=== PATIENT | female | born 1970 | race Caucasian/White ===

== ENCOUNTER 2024-12-13 21:19 | Inpatient (IN) | payer OTHER ==
[~2024-12-13] VITALS: Ht 162.5 cm; Wt 94.3 kg
[~2024-12-13 21:19] MED LIST: DAYPRO600 M1 PO
[2024-12-13 21:34] VITALS: BP 154/82
[2024-12-13] MEDS ORDERED: AMITRIPTYLINE150 M1 PO (21:39)
[2024-12-13] MEDS ORDERED: NEURONTIN100 MG PO (21:39)
[2024-12-13] MEDS ORDERED: FLUOXETINE HCL40 MG PO (21:40)
[2024-12-13] MEDS ORDERED: Ondansetron Hydrochloride 4 MG/2 ML VIAL IV ONE (21:55)
[2024-12-13] MEDS ORDERED: HYDROmorphONE Hydrochloride 0.5 MG/0.5 ML SYRINGE IV ONE (21:55)
[2024-12-13] MEDS ORDERED: SODIUM CHLORIDE 0.9% 1,000 ML IV ONE (21:55)
[2024-12-13 22:22] LABS: BASO # 0.1 10*3/uL (0.0-0.1); BASO % 0.3 % (0.0-1.0); EOS % 0.2 % (1.0-4.0); HEMATOCRIT 42.8 % (37.0-47.0); MEAN CORPUSCULAR HGB CONC 33.6 g/dl (33.0-37.0); MEAN PLATELET VOLUME 9.4 fl (9.6-12.3); MONO # 0.7 10*3/uL (0.1-1.0); MONO % 4.3 % (3.0-9.0); NEUT # 14.7 10*3/uL (2.3-7.9); PLATELET COUNT AUTOMATED 307 10*3/uL (130-400); RED BLOOD COUNT 4.65 10*6/uL (4.10-5.10); RED CELL DISTRI WIDTH 12.8 % (0-14.5); WHITE BLOOD COUNT 16.6 10*3/uL (4.8-10.8)
[2024-12-13 22:38] LABS: ALKALINE PHOSPHATASE 143 U/L (46-116); BUN 8 mg/dl (9-23); CHLORIDE 102 mmol/L (98-107); LIPASE 32 U/L (12-53); POTASSIUM 3.5 mmol/L (3.4-5.1); SGPT/ALT 31 U/L (5-49); TOTAL PROTEIN 7.5 gm/dL (6.0-8.0)
[2024-12-14] VITALS (12 sets, daily range): BP systolic 116–154; BP diastolic 65–86
[2024-12-14] MEDS ORDERED: HYDROmorphone Hydrochloride 1 MG/ML SYR IV ONE (00:05)
[2024-12-14] MEDS ORDERED: Ondansetron Hydrochloride 4 MG/2 ML VIAL IV ONE ×2 (00:05→14:36)
[2024-12-14] MEDS ORDERED: TEMAZEPAM 15 MG CAP PO PRN (00:10)
[2024-12-14] MEDS ORDERED: ACETAMINOPHEN 325 MG TAB PO PRN (00:10)
[2024-12-14] MEDS ORDERED: BISACODYL 10 MG SUPP R PRN (00:10)
[2024-12-14] MEDS ORDERED: BISACODYL 5 MG TAB PO PRN (00:10)
[2024-12-14] MEDS ORDERED: ACETAMINOPHEN 650 MG SUPP R PRN (00:10)
[2024-12-14] MEDS ORDERED: Ondansetron Hydrochloride 4 MG/2 ML VIAL IV PRN (00:10)
[2024-12-14] MEDS ORDERED: Magnesium Hydroxide 30 ML UDC PO PRN (00:10)
[2024-12-14] MEDS ORDERED: HYDROmorphone Hydrochloride 1 MG/ML SYR IV PRN (00:15)
[2024-12-14] MEDS ORDERED: SODIUM CHLORIDE 0.9% 1,000 ML IV SCH (00:15)
[2024-12-14] MEDS ORDERED: metroNIDAZOLE 100 ML IV ONE ×2 (01:45→23:55)
[2024-12-14] MEDS ORDERED: LEVOFLOXACIN 100 ML IV ONE ×2 (01:45→23:55)
[2024-12-14] MEDS ORDERED: Ketorolac Tromethamine 30 MG/ML VIAL IV ONE ×3 (01:55→23:55)
[2024-12-14] MEDS ORDERED: Ketorolac Tromethamine 15 MG/ML VIAL IV PRN (02:05)
[2024-12-14] MEDS ORDERED: Lactated Ringer's Solution 1,000 ML IV ONE ×2 (02:08→12:07)
[2024-12-14] MEDS ORDERED: CLONIDINE HCL0.1 MG PO (02:29)
[2024-12-14] MEDS ORDERED: metroNIDAZOLE 100 ML IV SCH (06:00)
[2024-12-14 06:13] LABS: BASO # 0.1 10*3/uL (0.0-0.1); BASO % 0.4 % (0.0-1.0); EOS % 0.2 % (1.0-4.0); HEMATOCRIT 37.6 % (37.0-47.0); MEAN CORPUSCULAR HGB CONC 31.9 g/dl (33.0-37.0); MEAN PLATELET VOLUME 9.4 fl (9.6-12.3); MONO # 1.1 10*3/uL (0.1-1.0); MONO % 6.8 % (3.0-9.0); NEUT # 13.4 10*3/uL (2.3-7.9); NEUT % 80.5 % (47.0-73.0); PLATELET COUNT AUTOMATED 252 10*3/uL (130-400); RED CELL DISTRI WIDTH 12.8 % (0-14.5); WHITE BLOOD COUNT 16.6 10*3/uL (4.8-10.8)
[2024-12-14 06:27] LABS: ACT PARTIAL THROMBO TIME 28.4 SECONDS (20.0-32.1)
[2024-12-14 06:38] LABS: ALKALINE PHOSPHATASE 114 U/L (46-116); BUN 7 mg/dl (9-23); CHLORIDE 104 mmol/L (98-107); CHOLESTEROL 155 mg/dL (<200); LDL CHOLESTEROL 102 mg/dL (9-159); POTASSIUM 3.8 mmol/L (3.4-5.1); SGPT/ALT 23 U/L (5-49); TOTAL PROTEIN 6.1 gm/dL (6.0-8.0); TRIGLYCERIDES 64 mg/dl (<150)
[2024-12-14 09:04] LABS: VITAMIN D, 25-HYDROXY 75.3 ng/mL (30-100)
[2024-12-14] MEDS ORDERED: Enoxaparin Sodium 40 MG/0.4 ML SYR SC SCH (10:00)
[2024-12-14] MEDS ORDERED: ACETAMINOPHEN 100 ML IV ONE (12:07)
[2024-12-14] MEDS ORDERED: SODIUM CHLORIDE 0.9% 1,000 ML IV ONE (12:18)
[2024-12-14] MEDS ORDERED: ceFAZolin sodium/sodium chlor 20 ML IV ONE (12:53)
[2024-12-14] MEDS ORDERED: Acetaminophen/Hydrocodone 5 MG/325 MG TABLET PO PRN ×2 (14:25)
[2024-12-14] MEDS ORDERED: Labetalol Hydrochloride 20 MG/4 ML SYR IV ONE (14:36)
[2024-12-14] MEDS ORDERED: Midazolam Hydrochloride 2 MG/2 ML VIAL IV ONE (14:36)
[2024-12-14] MEDS ORDERED: SEVOFLURANE 250 ML BOT INH ONE (14:36)
[2024-12-14] MEDS ORDERED: ROCURONIUM BROMIDE 100 MG/10 ML VIAL IV ONE (14:36)
[2024-12-14] MEDS ORDERED: SUGAMMADEX SODIUM 200 MG/2 ML VIAL IV ONE (14:36)
[2024-12-14] MEDS ORDERED: fentaNYL CITRATE 100 MCG/2 ML VIAL IV ONE (14:36)
[2024-12-14] MEDS ORDERED: Lidocaine Hydrochloride 2% 5 ML SDV IM ONE (14:36)
[2024-12-14] MEDS ORDERED: Dexamethasone Sodium Phospha 4 MG/ML VIAL IV ONE (14:36)
[2024-12-14] MEDS ORDERED: PROPOFOL 200 MG/20 ML VIAL IV ONE (14:36)
[2024-12-14] MEDS ORDERED: Phenylephrine Hydrochloride 1 MG/10 ML SYRINGE IV ONE (14:36)
[2024-12-14] MEDS ORDERED: LEVOFLOXACIN 100 ML IV SCH (22:00)
[2024-12-14] MEDS ORDERED: Lactated Ringer's Solution 1,000 ML IV SCH (23:55)
[2024-12-15] VITALS: BP 124/49
[2024-12-15 07:20] LABS: BASO % 0.1 % (0.0-1.0); EOS % 0.1 % (1.0-4.0); HEMATOCRIT 36.8 % (37.0-47.0); MEAN CELL VOLUME 94.8 fl (81.0-99.0); MEAN CORPUSCULAR HGB 31.2 pg (27.0-31.0); MEAN CORPUSCULAR HGB CONC 32.9 g/dl (33.0-37.0); MEAN PLATELET VOLUME 9.4 fl (9.6-12.3); MONO # 0.9 10*3/uL (0.1-1.0); MONO % 5.3 % (3.0-9.0); NEUT # 15.5 10*3/uL (2.3-7.9); NEUT % 88.1 % (47.0-73.0); PLATELET COUNT AUTOMATED 259 10*3/uL (130-400); RED BLOOD COUNT 3.88 10*6/uL (4.10-5.10); RED CELL DISTRI WIDTH 12.9 % (0-14.5); WHITE BLOOD COUNT 17.6 10*3/uL (4.8-10.8)
[2024-12-15 08:00] VITALS: BP 114/61
[2024-12-15 08:01] LABS: BUN 7 mg/dl (9-23); CHLORIDE 102 mmol/L (98-107); POTASSIUM 3.6 mmol/L (3.4-5.1)
[2024-12-15] MEDS ORDERED: HYDROCODONE-AC1 EAC1 PO (10:43)
[2024-12-15 12:00] VITALS: BP 130/56
== END 2024-12-15 14:00 | disposition home or self-care (01) | DRG 854 ==
LOC: ED 21:19 → EDHOLD 12-14 00:02 → 5E 12-14 00:02 → EDHOLD 12-14 00:14 → 5E 12-14 00:33
PROVIDERS: Emergency Medicine; Student in an Organized Health Care Education/Training Program; ADMIT Family Medicine; ATTEND Family Medicine
PROC: 0DTJ4ZZ Resection of Appendix, Percutaneous Endoscopic Approach (ICD-10-PCS; principal; 2024-12-14)
DX: A41.9 Sepsis, unspecified organism (principal); K35.30 Acute appendicitis with localized peritonitis, without perforation or gangrene; N17.9 Acute kidney failure, unspecified; K58.9 Irritable bowel syndrome, unspecified; Z88.8 Allergy status to other drugs, medicaments and biological substances; Z91.09 Other allergy status, other than to drugs and biological substances; Z79.899 Other long term (current) drug therapy; Z79.01 Long term (current) use of anticoagulants; Z83.3 Family history of diabetes mellitus; Z87.891 Personal history of nicotine dependence; Z82.49 Family history of ischemic heart disease and other diseases of the circulatory system; Z80.3 Family history of malignant neoplasm of breast